=== PATIENT | male | born 1975 | race Caucasian/White ===

== ENCOUNTER 2020-12-21 08:21 | Emergency (ER) | payer OTHER ==
[2020-12-21] MEDS ORDERED: PREDNISONE 20MG20 MG PO (09:28)
== END 2020-12-21 09:36 | disposition home or self-care (01) ==
LOC: FER 08:21
DX: T63.441A Toxic effect of venom of bees, accidental (unintentional), initial encounter (principal); Z88.6 Allergy status to analgesic agent
CPT/HCPCS: 96372; 99282; J1200; J2930